=== PATIENT | male | born 1975 | race Caucasian/White ===

== ENCOUNTER 2018-02-03 17:22 | Emergency (ER) | payer OTHER ==
[~2018-02-03] VITALS: Ht 190.5 cm; Wt 105.2 kg
[2018-02-03] MEDS ORDERED: PNEU16DI2 (17:29)
== END 2018-02-03 21:19 | disposition home or self-care (01) ==
LOC: ER 17:22
DX: H92.03 Otalgia, bilateral (principal); H61.23 Impacted cerumen, bilateral